=== PATIENT | female | born 1975 | race Caucasian/White ===

== ENCOUNTER → 2019-04-17 | Outpatient (CLI) | payer BC ==
--- NOTE | 2019-04-17 12:17 | P.STRESS ---
- Stress Test Note Stress Test Results/Findings: Exam Performed: stress test Exam Date: 04/17/19 Reason for Exam: DIFFICULTY BREATHING Height: 5 ft 4 in Weight: 205 kg Protocol: FAVIAN Stage: IV Duration of Exercise: 10:39 Resting Heart Rate: 80 Resting Blood Pressure: 135/81 Maximum Achieved Heart Rate: 155 Maximum Achieved Blood Pressure: 203/74 85% PMHR: 149 100% PMHR: 175 METS: 12.1 Technologist Comment: Stress Test Results/Findings: This is a 43-year-old female with history of hypercholesterolemia, smoking history and also family history being evaluated for cardiac status. Patient also complaining of dyspnea on exertion. A stress data: Baseline EKG showed a sinus rhythm with normal IN interval and QRS duration. Blood pressure at rest is 135/81 with a pulse rate of 80. Patient walked on the Favian protocol for 10 minutes and 39 seconds achieving a maximum heart rate of 155 with a blood pressure of 203/74. EKGs taken during and after exercise did not reveal any significant changes from baseline. Occasional PVCs were noted. Final impression: #1. Negative stress test #2. Good excise capacity #3. No arrhythmias noted
--- NOTE | 2019-04-18 13:04 | EST ---
Stress Test Results/Findings: Exam Performed: stress test Exam Date: 04/17/19 Reason for Exam: DIFFICULTY BREATHING Height: 5 ft 4 in Weight: 205 kg Protocol: FAVIAN Stage: IV Duration of Exercise: 10:39 Resting Heart Rate: 80 Resting Blood Pressure: 135/81 Maximum Achieved Heart Rate: 155 Maximum Achieved Blood Pressure: 203/74 85% PMHR: 149 100% PMHR: 175 METS: 12.1 Technologist Comment: Stress Test Results/Findings: This is a 43-year-old female with history of hypercholesterolemia, smoking history and also family history being evaluated for cardiac status. Patient also complaining of dyspnea on exertion. A stress data: Baseline EKG showed a sinus rhythm with normal VA interval and QRS duration. Blood pressure at rest is 135/81 with a pulse rate of 80. Patient walked on the Favian protocol for 10 minutes and 39 seconds achieving a maximum heart rate of 155 with a blood pressure of 203/74. EKGs taken during and after exercise did not reveal any significant changes from baseline. Occasional PVCs were noted. Final impression: #1. Negative stress test #2. Good excise capacity #3. No arrhythmias noted MTDD
== END | disposition home or self-care (01) ==
LOC: RADNMMAIN 08:32
PROVIDERS: ATTEND Family Medicine
DX: R07.9 Chest pain, unspecified (principal)
CPT/HCPCS: 93017